=== PATIENT | female | born 1955 | race Caucasian/White ===

== ENCOUNTER → 2021-11-04 12:54 | Outpatient (POV) | payer MEDICARE, OTHER, SELFPAY ==
[2021-11-04 12:55] VITALS: BP 126/83; PULSE 114; RESP 20; TEMP 36.4; O2SAT 97; BMI 27.9
--- NOTE | 2021-11-04 16:16 | EXP.PAIN.OV ---
HPI Data of Consult Patient: new to practice Consult date: 11/04/21 Requesting Physician: Elba Jin APRN Consult Narrative Reason for consult: Upper and lower back pain History of present illness: Ms. Savage is a 65 year old female who presents today as a new patient. She is a self-referral. Her daughter is a patient of ours. Patient rates her pain today a 10 out of 10 and states her pain is all in her upper and lower back. She denies any new trauma or injury to the site. She states she has had this pain for years however in the last 2 weeks it has seemed to worsen. She states she has not been able to sleep at all. Patient states she is unable to lay/sit/stand for any extended period. Patient has not had any updated imaging. Patient states that she has tried physical therapy several years ago but it did not do anything. She is also seen a chiropractor for 2 years on again off again with some improvement of her symptoms about 3 years ago. Patient has used [id number] Tylenol and Aleve with minimal improvement of her symptoms. She states she does use a lidocaine roll on topical that helps give some relief however it does not provide long-term relief. Patient states ice and heat do help however it is not long-lasting. Patient is requesting pain medication at today's visit. She is currently managed with gabapentin 800 mg twice a day by Dr. [place]. Patient has tried and failed conservative therapy such as oral medications, heat and ice, topical medications, physical therapy, home exercise and stretching for longer than 6 weeks. Her Juan Antonio is [id number]. It has been reviewed and appropriate. Patient states she was recently diagnosed with chronic kidney disease stage II. Patient is also a diabetic that is poorly controlled. Her last A1c in October was 11. Patient is managed for her diabetes with oral medications as well as insulin however she stated her glucose on average runs around 275. CC: Elba Jin APRN PFSH PFS Medical History (Updated 11/04/21 @ 16:24 by Elba Jin APRN) Anxiety and depression Diabetes mellitus, type 2 History of gastroesophageal reflux (GERD) Hyperlipidemia Hypertension Hypothyroid Meniscal injury Surgical History (Updated 11/04/21 @ 14:32 by Mariella Means RN) History of cholecystectomy History of hysterectomy Social History (Updated 11/04/21 @ 14:34 by Mariella Means RN) Smoking Status: Never smoker alcohol intake: never current occupational status: other Review of Systems Review of Systems Review of systems:: pertinent systems reviewed and negative unless documented below Review of systems (narrative): Review of Systems: General: No recent weight changes, no fever, no sleep disturbances Respiratory: No cough, no shortness of air, no recurring pulmonary infections Cardiovascular/peripheral vascular: No chest pain, no palpitations, no edema, no shortness of breath Gastrointestinal: No new onset incontinence, normal bowel movements reported Genitourinary: No new onset incontinence Musculoskeletal: Neck pain, upper back pain, low back pain Psychiatric: [Normal mood/affect] Neurological: [Denies weakness in extremities], [denies balance issues] Meds Home Medications and Allergies Home Medications Medication Instructions Recorded Confirmed Type amitriptyline 25 mg tablet 25 mg PO HS . 11/04/21 11/04/21 History aspirin 81 mg chewable tablet 81 mg PO DAILY . 11/04/21 11/04/21 History atorvastatin 40 mg tablet 40 mg PO DAILY hld 11/04/21 11/04/21 History benazepril 20 mg tablet 20 mg PO DAILY . 11/04/21 11/04/21 History benzonatate 200 mg capsule 200 mg PO TID PRN Cough 11/04/21 11/04/21 History dapagliflozin 10 mg tablet 10 mg PO DAILY . 11/04/21 11/04/21 History duloxetine 60 mg capsule,delayed 60 mg PO BID Depression 11/04/21 11/04/21 History release fenofibrate nanocrystallized 145 145 mg PO DAILY . 11/04/21 11/04/21 History mg tablet gabapentin 800 mg tablet 8
== END ==
PROVIDERS: Visit Provider Nurse Practitioner Family
DX: M54.50 Low back pain, unspecified (principal); M54.2 Cervicalgia
CPT/HCPCS: 99202; G0463

== ENCOUNTER → 2021-11-10 13:25 | Outpatient (CLI) | payer MEDICARE, OTHER, SELFPAY ==
--- NOTE | 2021-11-10 13:31 | MR_ITS ---
FINAL REPORT CLINICAL HISTORY: LOWER BACK PAIN MID BACK DOWN TO HIPS BILATERAL LEGS RIGHT LEG IS WORSE FINDINGS: MRI LUMBAR SPINE W/O CONTRAST Multiplanar MR imaging of the lumbar spine was performed without contrast. There is motion on some of the images which decreases sensitivity. On the sagittal T2-weighted images, disc degeneration is seen at multiple levels. The vertebral alignment is normal. There is no evidence of fracture. The conus has an unremarkable appearance. L1-2: No significant central canal stenosis or neural foraminal narrowing. L2-3: There is an annular disc bulge with facet arthropathy. L3-4: There is an annular disc bulge with facet arthropathy and mild bilateral neural foraminal narrowing. L4-5: There is an annular disc bulge with facet arthropathy and mild bilateral neural foraminal narrowing. L5-S1: There is an annular disc bulge with facet arthropathy and mild bilateral neural foraminal narrowing. IMPRESSION: Multilevel disc degeneration and spondylosis with areas of mild bilateral neural foraminal narrowing. Reviewed, Interpreted and Dictated by Quinn Fang III, MD Transcribed by Patricia Miller Authenticated and . [facility]
--- NOTE | 2021-11-10 13:31 | MR_ITS ---
FINAL REPORT CLINICAL HISTORY: NECK PAIN MID SHOULDER BLADES AND GOES UP NECK X FEW WEEKS FINDINGS: Multiplanar MR imaging of the cervical spine was performed without contrast. On the sagittal T2-weighted images, disc degeneration is seen throughout. There is no evidence of fracture. The vertebral alignment is normal. The cervical spinal cord has an unremarkable appearance without evidence of mass, edema or syrinx. The cervicomedullary junction is normal. C2-3: There is no significant canal stenosis or neural foraminal narrowing. C3-4: An annular disc bulge is present with bilateral l uncovertebral osteophytes. There is moderate right and severe left neural foraminal narrowing. C4-5: A disc osteophyte complex is present. A right paracentral disc protrusion versus extrusion causes cord contouring. There is moderate central canal stenosis with an AP diameter of the thecal sac of 6 mm. There is mild bilateral neural foraminal narrowing. C5-6: A disc osteophyte complex is present. There is severe right and moderate left neural foraminal narrowing. There is mild central canal stenosis with an AP diameter of the thecal sac of 8 mm. C6-7: A disc osteophyte complex is present. There is mild right and severe left neural foraminal narrowing. C7-T1: A disc osteophyte complex is present. IMPRESSION: Multilevel disc degeneration and spondylosis with areas of neural foraminal narrowing which is worse on the right at C5-6 and on the left at C6-7. Right paracentral disc protrusion versus extrusion causes cord contouring at C4-5. Central canal stenosis at C4-5 and C5-6. Reviewed, Interpreted and Dictated by Quinn Fang III, MD Transcribed by Patricia Miller Authenticated and [facility]
== END ==
PROVIDERS: PCP Family Medicine; Visit Provider Nurse Practitioner Family
DX: M54.2 Cervicalgia (principal); M54.50 Low back pain, unspecified
CPT/HCPCS: 72141; 72148; 76376

== ENCOUNTER → 2021-11-17 14:17 | Outpatient (POV) | payer MEDICARE, OTHER, SELFPAY ==
[2021-11-17 14:31] VITALS: BP 167/98; PULSE 100; RESP 20; BMI 16.1
--- NOTE | 2021-11-17 16:01 | EXP.PAIN.SOA ---
[facility] Pain Management SOAP Note Subjective:: Patient is a pleasant 66-year-old female who presents today for follow-up. We are currently treating the patient for degenerative disc disease of cervical and lumbar spine multilevel with cervical and lumbar radiculopathy symptoms. Today the patient rates her pain a 10 out of 10. She states it is primarily in her neck that radiates down her back into her lumbar spine. Patient denies any new trauma or injury to the site. She states this has been an ongoing issue for years however it has been worse in the last month and a half. Patient continues to state that she is not able to sleep well at night due to the pain. She is unable to lay/sit/stand for extended period of time. Patient has seen physical therapy in the past and states she did not get any improvement of her symptoms. She is also seen a chiropractor about 3 years ago for 2 years on again off again with some improvement of her symptoms. Patient does use a topical lidocaine however it does not provide long-term relief. She is also tried ice and heat with minimal improvement. She is managed currently with gabapentin 800 mg twice a day by Dr. [place]. Patient denies any side effects from this medication. She states this medication does adequately help manage her pain. Patient states that the tizanidine we started her on has given some improvement of her symptoms. She is requesting a refill at today's visit. Patient has tried and failed conservative therapy such as oral medications, heat and ice, topical medications, physical therapy, home exercise and stretching for longer than 6 weeks. Her Juan Antonio is [id number]. It is been reviewed and appropriate. Review of Systems: General: No recent weight changes, no fever, no sleep disturbances Respiratory: No cough, no shortness of air, no recurring pulmonary infections Cardiovascular/peripheral vascular: No chest pain, no palpitations, no edema, no shortness of breath Gastrointestinal: No new onset incontinence, normal bowel movements reported Genitourinary: No new onset incontinence Musculoskeletal: Neck pain, back pain Psychiatric: [Normal mood/affect] Neurological: [Denies weakness in extremities], [denies balance issues] Objective:: Physical Exam: General: Alert and oriented x3, no acute distress, pleasant and cooperative Lungs: Respirations even and unlabored, symmetrical chest expansion Eyes: PERRL Musculoskeletal: Flexion and extension of cervical, lumbar [spine] somewhat guarded secondary to pain, [antalgic gait noted] Neurological: Speech clear, no gross sensory deficit FINAL REPORT CLINICAL HISTORY: LOWER BACK PAIN? MID BACK DOWN TO HIPS ? BILATERAL LEGS ? RIGHT LEG IS WORSE FINDINGS: MRI LUMBAR SPINE W/O CONTRAST? Multiplanar MR imaging of the lumbar spine was performed without contrast.? There is motion on some of the images which decreases sensitivity.? On the sagittal T2-weighted images, disc degeneration is seen at multiple levels.? The vertebral alignment is normal.? There is no evidence of fracture.? The conus has an unremarkable appearance. L1-2:? No significant central canal stenosis or neural foraminal narrowing.? L2-3:? There is an annular disc bulge with facet arthropathy.? L3-4:? There is an annular disc bulge with facet arthropathy and mild bilateral neural foraminal narrowing. L4-5:? There is an annular disc bulge with facet arthropathy and mild bilateral neural foraminal narrowing.? L5-S1: There is an annular disc bulge with facet arthropathy and mild bilateral neural foraminal narrowing. IMPRESSION: Multilevel disc degeneration and spondylosis with areas of mild bilateral neural foraminal narrowing. Reviewed, Interpreted and Dictated by Quinn Fang III, MD Transcribed by Patricia Miller Authenticated and [facility] CLINICAL HISTORY: NECK PAIN? MID SHOULDER BLADES AND GOES UP NECK
== END | disposition home or self-care (01) ==
PROVIDERS: Visit Provider Nurse Practitioner Family
DX: M51.16 Intervertebral disc disorders with radiculopathy, lumbar region (principal); M50.123 Cervical disc disorder at C6-C7 level with radiculopathy
CPT/HCPCS: 99212; G0463

== ENCOUNTER 2021-11-24 11:18 | Day surgery (SDC) | payer MEDICARE, OTHER, SELFPAY ==
[2021-11-24 11:43] VITALS: BP 187/97; PULSE 88; RESP 20; O2SAT 98; BMI 27.9
[2021-11-24 11:59] VITALS: BP 176/93; PULSE 89; RESP 18; O2SAT 98
[2021-11-24 12:00] VITALS: BP 176/93; PULSE 89; RESP 19; O2SAT 98
--- NOTE | 2021-11-24 12:10 | EXP.PAIN.PRO ---
Procedure Date: 11/24/21 Time: 12:10 Anesthesiologist:: Bernardo Shearer CRNA Complications:: None Pre-procedure Diagnosis:: Degenerative disc disease cervical spine multilevels. Cervical radiculopathy symptoms. Post-procedure Diagnosis:: Same Indications for Procedure:: Patient is a pleasant 66-year-old female who comes our clinic today for cervical epidural steroid injection C7-T1 level. Patient complains of cervical neck pain as well as bilateral arm radicular symptoms at times. She rates her pain 6/10. Procedure Details:: Procedure:Cervical epidural steroid injection Informed consent was obtained and the risks and benefits of the procedure were explained to the patient. The patient was taken to the procedure room and noninvasive monitors placed, including noninvasive blood pressure cuff and pulse oximeter. The neck was prepped using Betadine as a cleansing solution. The C7-T1 interspace was palpated. The skin and subcutaneous tissues were anesthetized using lidocaine 1.5% and a 25-gauge needle. After this an 18-gauge Touhy epidural needle was placed into the C7-T1 interspace and advanced using loss of resistance to air until the epidural space was encountered. After confirmation of needle placement in the epidural space, a solution containing lidocaine 1.5%, 4 mL and Depo-Medrol 80 mg was incrementally injected into the cervical epidural space.~ The patient tolerated the procedure well with no complications. The patient was observed in the Pain Clinic and then discharged home neurologically intact. Plan and Disposition:: Patient was discharged without incident.
[2021-11-24 12:17] VITALS: BP 160/82; PULSE 88; RESP 20; O2SAT 99
== END 2021-11-24 12:19 | disposition home or self-care (01) ==
PROVIDERS: PCP Family Medicine; Visit Provider Nurse Anesthetist, Certified Registered
DX: M50.13 Cervical disc disorder with radiculopathy, cervicothoracic region (principal); M51.16 Intervertebral disc disorders with radiculopathy, lumbar region
CPT/HCPCS: 62321; J1040; Q9966

== ENCOUNTER → 2021-12-16 09:36 | Outpatient (POV) | payer MEDICARE, OTHER, SELFPAY ==
--- NOTE | 2021-12-16 10:03 | EXP.PAIN.SOA ---
[facility] Pain Management SOAP Note Subjective:: Patient is a pleasant 66-year-old female who presents today for follow-up of cervical epidural C7-T1 on 11/24/2021. We are currently treating the patient for degenerative disc disease cervical spine multilevels with cervical radiculopathy symptoms, degenerative disc disease lumbar with lumbar radiculopathy symptoms. Today the patient states that she has had significant improvement in the pain that she was experiencing along her neck and upper back following this injection. She writes at least 75% relief and feels like she is still getting additional improvement from this injection. Today she does rate her pain an 8 out of 10. She states her pain is primarily in her low back that radiates into her lower extremities. She describes this as a achy, sharp pain that is worse with increased activity. Patient denies any new trauma or injury. She denies any change in location or type of pain that she experiences. Patient has tried wbbj-kcu-gfhdfxb Tylenol and ibuprofen with minimal improvement of her symptoms. Patient states she often has trouble sleeping at night due to the pain. Previously we had prescribed her tizanidine 4 mg at night. Patient states that this medication did work well and is requesting a refill at today's visit. Patient has seen physical therapy in the past however she stated that she did not get significant improvement of her symptoms. Patient has used [id number]-[id number]-fgdxwbz topical medications with some improvement however she is now using her compounding cream that she states gives significant relief. she is currently managed with gabapentin 800 mg twice a day by Dr. [place]. Patient denies any side effects from this medication. She states this medication does adequately help manage her pain. Her Juan Antonio is [id number]. It is been reviewed and appropriate. Review of Systems: General: No recent weight changes, no fever, no sleep disturbances Respiratory: No cough, no shortness of air, no recurring pulmonary infections Cardiovascular/peripheral vascular: No chest pain, no palpitations, no edema, no shortness of breath Gastrointestinal: No new onset incontinence, normal bowel movements reported Genitourinary: No new onset incontinence Musculoskeletal: Low back pain, bilateral leg pain Psychiatric: [Normal mood/affect] Neurological: [Denies weakness in extremities], [denies balance issues] Objective:: Physical Exam: General: Alert and oriented x3, no acute distress, pleasant and cooperative Lungs: Respirations even and unlabored, symmetrical chest expansion Eyes: PERRL Musculoskeletal: Flexion and extension of lumbar [spine] somewhat guarded secondary to pain, [antalgic gait noted] Neurological: Speech clear, no gross sensory deficit CLINICAL HISTORY: LOWER BACK PAIN? MID BACK DOWN TO HIPS ? BILATERAL LEGS ? RIGHT LEG IS WORSE FINDINGS: MRI LUMBAR SPINE W/O CONTRAST? Multiplanar MR imaging of the lumbar spine was performed without contrast.? There is motion on some of the images which decreases sensitivity.? On the sagittal T2-weighted images, disc degeneration is seen at multiple levels.? The vertebral alignment is normal.? There is no evidence of fracture.? The conus has an unremarkable appearance. L1-2:? No significant central canal stenosis or neural foraminal narrowing.? L2-3:? There is an annular disc bulge with facet arthropathy.? L3-4:? There is an annular disc bulge with facet arthropathy and mild bilateral neural foraminal narrowing. L4-5:? There is an annular disc bulge with facet arthropathy and mild bilateral neural foraminal narrowing.? L5-S1: There is an annular disc bulge with facet arthropathy and mild bilateral neural foraminal narrowing. IMPRESSION: Multilevel disc degeneration and spondylosis with areas of mild bilateral neural foraminal narrowing. Reviewed, Interpreted and Dictated by Quinn Fang III, MD Transcribed by Patricia Miller Authenticated and Electronically [facility]
[2021-12-16 10:05] VITALS: BP 119/74; PULSE 82; RESP 18; TEMP 36.2; O2SAT 98; BMI 27.9
== END ==
PROVIDERS: PCP Family Medicine; Visit Provider Nurse Practitioner Family
DX: M51.16 Intervertebral disc disorders with radiculopathy, lumbar region (principal); M50.13 Cervical disc disorder with radiculopathy, cervicothoracic region
CPT/HCPCS: 99212; G0463

== ENCOUNTER 2021-12-29 07:42 | Day surgery (SDC) | payer MEDICARE, OTHER, SELFPAY ==
[2021-12-29 07:56] VITALS: BP 165/82; PULSE 82; RESP 20; TEMP 36.5; O2SAT 99; BMI 27.9
[2021-12-29 08:14] LABS: POC Glucose,Bedside 174 (70-110)
[2021-12-29 08:24] VITALS: BP 149/80; PULSE 80; RESP 18; O2SAT 98
[2021-12-29 08:33] VITALS: BP 151/80; PULSE 74; RESP 18; O2SAT 98
[2021-12-29 08:40] VITALS: BP 165/82; PULSE 82; RESP 18; TEMP 36.5; O2SAT 99
--- NOTE | 2021-12-29 09:27 | EXP.PAIN.PRO ---
Procedure Date: 12/29/21 Time: 09:15 Anesthesiologist:: Bernardo Shearer CRNA Complications:: None Pre-procedure Diagnosis:: Degenerative disc disease lumbar spine multilevels. Lumbar radiculopathy Post-procedure Diagnosis:: Same Indications for Procedure:: Patient is a pleasant 66-year-old female that comes today for lumbar epidural steroid injection at the L4-5 level. Patient complains of low back pain as well as bilateral hip and leg radicular symptoms. She rates her pain 7/10. Procedure Details:: Procedure: Lumbar epidural steroid injection under fluoroscopy Informed consent was obtained and the risks and benefits of the procedure were explained to the patient. The patient was taken to the procedure room and noninvasive monitors placed, including noninvasive blood pressure cuff and pulse oximeter. The back was viewed using C-arm Fluoroscopy and prepped using Chloraprep as a cleansing solution and the L4-L5 interspace was palpated. Skin and subcutaneous tissues were anesthetized using lidocaine 1.5% and a 25-gauge needle. After this, an 18-gauge Touhy epidural needle was placed into the L4-L5 interspace and advanced using fluoroscopic guidance and loss of resistance to air until the epidural space was encountered. After confirmation of needle placement in the epidural space, with dye, a solution containing normal saline, 3 mL and Depo-Medrol 80 mg were incrementally injected into the lumbar epidural space. The patient tolerated the procedure well with no complications. The patient was observed in the Pain Clinic and then discharged home neurologically intact. Plan and Disposition:: Patient was discharged without incident.
== END 2021-12-29 08:40 | disposition home or self-care (01) ==
LOC: SC.PAINP 07:42
PROVIDERS: PCP Family Medicine; Visit Provider Nurse Anesthetist, Certified Registered
DX: M51.16 Intervertebral disc disorders with radiculopathy, lumbar region (principal); E11.9 Type 2 diabetes mellitus without complications
CPT/HCPCS: 62323; 82962; J1040

== ENCOUNTER → 2022-04-05 13:59 | Outpatient (POV) | payer MEDICARE, OTHER, SELFPAY ==
[2022-04-05 14:02] VITALS: BP 109/72; PULSE 101; RESP 18; O2SAT 97; BMI 27.9
--- NOTE | 2022-04-05 14:27 | EXP.PAIN.SOA ---
[facility] Pain Management SOAP Note Subjective:: Patient is a pleasant 66-year-old female who presents today for follow-up. We are currently treating the patient for degenerative disc disease of cervical and lumbar spine multilevels with cervical and lumbar radiculopathy symptoms. Today she rates her pain a 4 out of 10. Patient states she is experiencing new pain in her left arm that radiates to her neck. Patient states this is a achy, throbbing sensation that is worse with increased activity. Patient does states she has decreased range of motion and frequently cannot lift her arm above her head even to change her shirt due to the pain. Patient denies any new trauma or injury. Patient states this has been going on for almost 2 weeks. Patient states that she did initially do awkward positioning trying to mess with a car window and felt like this could have initially started it. Patient denies any imaging of her left shoulder. Patient is currently managed with gabapentin 800 mg twice a day from an outside provider and compounding cream from our office. Patient denies any side effects from these medications. She states these medications do help manage some of her pain symptoms. Her Juan Antonio is [id number]. Its been reviewed and appropriate. Review of Systems: General: No recent weight changes, no fever, no sleep disturbances Respiratory: No cough, no shortness of air, no recurring pulmonary infections Cardiovascular/peripheral vascular: No chest pain, no palpitations, no edema, no shortness of breath Gastrointestinal: No new onset incontinence, normal bowel movements reported Genitourinary: No new onset incontinence Musculoskeletal: Left shoulder pain Psychiatric: [Normal mood/affect] Neurological: [Denies weakness in extremities], [denies balance issues] Objective:: Physical Exam: General: Alert and oriented x3, no acute distress, pleasant and cooperative Lungs: Respirations even and unlabored, symmetrical chest expansion Eyes: PERRL Musculoskeletal: Flexion and extension of cervical [spine], left shoulder somewhat guarded secondary to pain, [antalgic gait noted] Neurological: Speech clear, no gross sensory deficit ORT score updated with low risk Assessment:: Degenerative disc disease of cervical and lumbar spine multilevels with cervical and lumbar radiculopathy symptoms, left shoulder pain Plan:: Patient is experiencing significant pain in her left arm and left shoulder. Patient had limited range of motion of her cervical spine and left shoulder during today's visit. I will order x-ray imaging of her left shoulder. I have also discussed with the patient that she may benefit from a left shoulder intra-articular injection. Risk and benefits were discussed with the patient. She would like to proceed forward with this plan of care. I have also discussed with the patient that if she does not get significant improvement following this injection that we will order additional imaging such as a MRI or CT of her shoulder. We will schedule her for a diagnostic left shoulder intra-articular injection. Patient has been instructed to contact the clinic with any concerns before the next appointment. Dr. Keys has reviewed this note and agrees with this plan of care. This note was dictated using voice recognition software and make contain errors or omissions. [facility] Disclaimer: The information contained in this section may have been updated after the patient was seen, as this information can be updated by other users. Medical History Anxiety and depression Diabetes mellitus, type 2 History of gastroesophageal reflux (GERD) Hyperlipidemia Hypertension Hypothyroid Meniscal injury Surgical History History of cholecystectomy History of hysterectomy Family History Other No significant family history Soc
== END ==
PROVIDERS: Visit Provider Nurse Practitioner Family
DX: M51.16 Intervertebral disc disorders with radiculopathy, lumbar region (principal); M50.10 Cervical disc disorder with radiculopathy, unspecified cervical region; M25.512 Pain in left shoulder
CPT/HCPCS: 99212; G0463

== ENCOUNTER → 2022-04-05 14:32 | Outpatient (CLI) | payer MEDICARE, OTHER, SELFPAY ==
--- NOTE | 2022-04-05 14:42 | XR_ITS ---
FINAL REPORT CLINICAL HISTORY: LEFT SHOULDER PAIN, no known injury. FINDINGS: Three views of the left shoulder were obtained. There is no prior exam for comparison. There is no fracture or dislocation. There is a calcification along the inferior glenoid which could be an osteophyte. There is calcification in the region of the rotator cuff which could represent calcific tendinitis. The joint space is preserved. IMPRESSION: Chronic changes with no acute osseous abnormality. Reviewed, Interpreted and Dictated by Romana Dwyer MD Transcribed by Anna Null Authenticated and [facility]
== END ==
PROVIDERS: PCP Family Medicine; Visit Provider Anesthesiology
DX: M25.512 Pain in left shoulder (principal)
CPT/HCPCS: 73030; 99212; G0463

== ENCOUNTER 2022-04-20 10:31 | Day surgery (SDC) | payer MEDICARE, OTHER, SELFPAY ==
[2022-04-20 10:51] VITALS: BP 127/72; PULSE 89; RESP 18; TEMP 36.7; O2SAT 98; BMI 27.9
[2022-04-20 10:55] VITALS: BP 147/84; PULSE 93; RESP 18; O2SAT 98
[2022-04-20 10:56] VITALS: BP 147/84; PULSE 93; RESP 18; O2SAT 98
--- NOTE | 2022-04-20 10:59 | P.PCN_ITS ---
Procedure Date: 04/20/22 Time: 10:30 Anesthesiologist:: Bernardo Shearer CRNA Complications:: None Pre-procedure Diagnosis:: Osteoarthritis left shoulder. Tendinitis. Post-procedure Diagnosis:: Same. Indications for Procedure:: Patient is a very pleasant 66-year-old female that comes to our clinic today for intra-articular injection left shoulder. Patient describes her left shoulder pain as constant, dull, sharp and stabbing at times. She has difficulty with abduction and abduction. She rates her pain 7/10 in Procedure Details:: Procedure Details: Left shoulder intra-articular injection Informed consent was obtained risk and benefits of the procedure were explained to the patient. Patient was taken to the procedure room. The left shoulder was prepped using ChloraPrep. A 25-gauge needle was used first anteriorly, laterally, and then posteriorly to inject 10 mL bupivacaine 0.25% and Depo- Medrol 40 mg. Patient tolerated procedure well with no complications. Plan and Disposition:: Patient was discharged without incident.
[2022-04-20 11:06] VITALS: BP 122/73; PULSE 83; RESP 18; O2SAT 98
== END 2022-04-20 11:06 | disposition home or self-care (01) ==
PROVIDERS: PCP Family Medicine; Visit Provider Nurse Anesthetist, Certified Registered
DX: M19.012 Primary osteoarthritis, left shoulder (principal); M77.9 Enthesopathy, unspecified
CPT/HCPCS: 20610; J1040

== ENCOUNTER → 2022-05-26 14:37 | Outpatient (POV) | payer MEDICARE, OTHER, SELFPAY ==
[2022-05-26 15:11] VITALS: BP 125/73; PULSE 110; RESP 20; BMI 27.9
--- NOTE | 2022-05-26 15:25 | EXP.PAIN.SOA ---
[facility] Pain Management SOAP Note Subjective:: Patient is a pleasant 66-year-old female who presents today for left shoulder intra-articular injection on 04/20/2022. We are currently treating the patient for degenerative disc disease of cervical and lumbar spine multilevels with cervical and lumbar radiculopathy symptoms. Today she states that she only had approximately 40% improvement following this injection and only lasting a couple of days. She does rate her pain today a 4 out of 10. Patient denies any new trauma or injury. She states her pain remains at her bilateral shoulders as well as her low back and her buttocks. She does state that she is having increasing pain around her buttocks area and describes it as a aching, throbbing sensation that is worse with increased activity. Patient does state it is difficult to sit for long periods of time due to the increasing pain. It does interfere with her abilities to perform activities of daily living such as cooking and cleaning. Patient has been prescribed compounding cream in the past and states it does help some. She also is on gabapentin 800 mg twice a day from an outside provider. Patient was given in the past tizanidine 4 mg at bedtime and she states this did provide additional improvement. She is requesting a refill at today's visit. Her Juan Antonio is [phone]. Its been reviewed and appropriate. Review of Systems: General: No recent weight changes, no fever, no sleep disturbances Respiratory: No cough, no shortness of air, no recurring pulmonary infections Cardiovascular/peripheral vascular: No chest pain, no palpitations, no edema, no shortness of breath Gastrointestinal: No new onset incontinence, normal bowel movements reported Genitourinary: No new onset incontinence Musculoskeletal: Low back pain, buttocks pain, bilateral shoulder pain, leg pain Psychiatric: [Normal mood/affect] Neurological: [Denies weakness in extremities], [denies balance issues] Objective:: Physical Exam: General: Alert and oriented x3, no acute distress, pleasant and cooperative Lungs: Respirations even and unlabored, symmetrical chest expansion Eyes: PERRL Musculoskeletal: Flexion and extension of lumbar [spine] somewhat guarded secondary to pain, [antalgic gait noted] point tenderness along sacrum; positive leg raise Neurological: Speech clear, no gross sensory deficit Assessment:: Degenerative disc disease of cervical and lumbar spine with cervical and lumbar radiculopathy symptoms, bilateral shoulder pain, coccydynia, buttocks pain Plan:: Patient is experiencing worsening symptoms in her low back and buttocks with radiating symptoms into her lower extremities. Patient did have limited range of motion of her lumbar spine and point tenderness along her sacrum during today's exam as well as a positive leg raise bilaterally. I have discussed with the patient that she may benefit from a caudal epidural. Risk and benefits were discussed with the patient and she would like to proceed forward with this plan of care. Patient is not on any blood thinners. I will order the patient's a refill of her tizanidine 4 mg at bedtime and provide a 1 month supply of this medication. Patient will be scheduled for a caudal epidural. Patient has been instructed to contact the clinic with any concerns before the next appointment. Dr. Keys has reviewed this note and agrees with this plan of care. This note was dictated using voice recognition software and make contain errors or omissions. [facility] Disclaimer: The information contained in this section may have been updated after the patient was seen, as this information can be updated by other users. Medical History Anxiety and depression Diabetes mellitus, type 2 History of gastroesophageal reflux (GERD) Hyperlipidemia Hypertension Hypothyroid Meniscal injury Surgical History (Reviewed 04/20/22 @ 10:53 by Shannan Galarza
== END | disposition home or self-care (01) ==
PROVIDERS: Visit Provider Nurse Practitioner Family
DX: M51.16 Intervertebral disc disorders with radiculopathy, lumbar region (principal); M50.10 Cervical disc disorder with radiculopathy, unspecified cervical region; M25.511 Pain in right shoulder; M25.512 Pain in left shoulder; M53.3 Sacrococcygeal disorders, not elsewhere classified
CPT/HCPCS: 99212; G0463

== ENCOUNTER → 2022-06-08 10:58 | Day surgery (SDC) | payer MEDICARE, OTHER, SELFPAY ==
[2022-06-08 11:11] VITALS: BP 156/77; PULSE 82; RESP 18; TEMP 36.6; O2SAT 97; BMI 27.9
--- NOTE | 2022-06-08 11:16 | PC.NURSE ---
Procedure cancelled due to pt blood glucose elevated-430.
--- NOTE | 2022-06-15 08:00 | A.OFFVIS_ITS ---
[facility] Pain Management SOAP Note Subjective:: Low back bilateral leg pain Objective:: Degenerative disc disease Assessment:: Patient presents to the clinic today for caudal epidural steroid injection. Her fingerstick blood sugar was elevated. Patient states she drank a Mountain Dew prior to her appointment. Plan:: Procedure will be postponed until next week. Patient encouraged to monitor glucose prior to appointment [facility] Disclaimer: The information contained in this section may have been updated after the patient was seen, as this information can be updated by other users. Medical History Anxiety and depression Diabetes mellitus, type 2 History of gastroesophageal reflux (GERD) Hyperlipidemia Hypertension Hypothyroid Meniscal injury Surgical History History of cholecystectomy History of hysterectomy Family History Other No significant family history Social History Smoking Status: Never smoker alcohol intake: never current occupational status: other Travel in the last 8 weeks: None
== END ==
PROVIDERS: PCP Family Medicine; Visit Provider Nurse Anesthetist, Certified Registered
DX: Z53.09 Procedure and treatment not carried out because of other contraindication (principal); R73.9 Hyperglycemia, unspecified

== ENCOUNTER 2022-06-15 14:16 | Day surgery (SDC) | payer MEDICARE, OTHER, SELFPAY ==
[2022-06-15 14:32] VITALS: BP 142/78; PULSE 91; RESP 18; TEMP 36.4; O2SAT 96; BMI 29.6
[2022-06-15 14:54] VITALS: BP 167/90; PULSE 90; RESP 18; O2SAT 98
[2022-06-15 14:56] VITALS: BP 167/90; PULSE 90; RESP 18; O2SAT 97
--- NOTE | 2022-06-15 15:00 | P.PCN_ITS ---
Procedure Date: 06/15/22 Time: 15:00 Anesthesiologist:: Bernardo Shearer CRNA Complications:: None Pre-procedure Diagnosis:: Degenerative disc disease lumbar spine multilevels. Lumbar radiculopathy. Sacral pain. Bilateral hip pain. Post-procedure Diagnosis:: Same. Indications for Procedure:: Patient is a very pleasant 66-year-old female that comes our clinic today for caudal epidural steroid injection. Patient complains of low back pain. Caudal pain. Sacral pain. Coccydynia pain. Patient reports she suffered a fall several years ago off the back of a pickup truck and fell on her bottom. She has had pain ever since. She rates her pain 8/10. Procedure Details:: Procedure: Caudal epidural steroid injection under fluoroscopy Informed consent was obtained and the risks and benefits of the procedure were explained to the patient. The patient was taken to the procedure room and noninvasive monitors placed, including noninvasive blood pressure cuff and pulse oximeter. The back was viewed using C-arm Fluoroscopy and prepped using Chloraprep as a cleansing solution and the caudal epidural space was identified. Skin and subcutaneous tissues were anesthetized using lidocaine 1.5% and a 25- gauge needle. After this, a 25-gauge 3 and half inch spinal needle was used to access the caudal epidural space. After confirmation of needle placement in the caudal space, with dye, a solution containing normal saline, 3 mL and Depo-Med rol 80 mg were incrementally injected into the lumbar caudal space. The patient tolerated the procedure well with no complications. Plan and Disposition:: Patient was discharged without incident.
[2022-06-15 15:01] VITALS: BP 156/84; PULSE 93; RESP 18; O2SAT 98
== END 2022-06-15 15:01 | disposition home or self-care (01) ==
PROVIDERS: PCP Family Medicine; Visit Provider Nurse Anesthetist, Certified Registered
DX: M51.16 Intervertebral disc disorders with radiculopathy, lumbar region (principal); M25.551 Pain in right hip; M25.552 Pain in left hip
CPT/HCPCS: 62323; J1030; Q9966

== ENCOUNTER → 2022-08-16 15:16 | Outpatient (POV) | payer MEDICARE, OTHER, SELFPAY ==
[2022-08-16 15:17] VITALS: BMI 29.0
--- NOTE | 2022-08-16 15:33 | EXP.PAIN.SOA ---
[facility] Pain Management SOAP Note Subjective:: Patient is a pleasant 66-year-old female who presents today for follow-up.? We are currently treating the patient for degenerative disc disease of cervical and lumbar spine multilevels with cervical and lumbar radiculopathy symptoms.? Today she rates her pain a 7 out of 10.? She denies any new trauma or injury. She denies any change to location or type of pain she experiences. She does state that her pain is in her low back and describes it as an achy, throbbing sensation that is worse with increased activity.? She states this pain is worse with increased activity. It does interfere with her ability to perform activities of daily living such as cooking and cleaning. Patient has had lumbar epidural steroid injection in the past that did provide significant improvement lasting several months. She is interested in repeating this injection during today's visit. Patient is currently managed with gabapentin 800 mg twice a day from an outside provider and compounding cream from our office.? Patient denies any side effects from these medications.? Her Juan Antonio is reviewed and is appropriate Review of Systems: General: No recent weight changes, no fever, no sleep disturbances Respiratory: No cough, no shortness of air, no recurring pulmonary infections Cardiovascular/peripheral vascular: No chest pain, no palpitations,? no edema, no shortness of breath Gastrointestinal: No new onset incontinence, normal bowel movements reported Genitourinary: No new onset incontinence Musculoskeletal: Low back pain Psychiatric: [Normal mood/affect] Neurological: [Denies weakness in extremities], [denies balance issues] Objective:: Physical Exam: General: Alert and oriented x3, no acute distress, pleasant and cooperative Lungs: Respirations even and unlabored, symmetrical chest expansion Eyes: PERRL Musculoskeletal: Flexion and extension of lumbar [spine] somewhat guarded secondary to pain, [antalgic gait noted] Neurological: Speech clear, no gross sensory deficit Assessment:: Degenerative disc disease of cervical and lumbar spine multilevels with cervical and lumbar radiculopathy symptoms Plan:: Patient is experiencing significant pain in her low back with limited range of motion. I have counseled the patient that she may benefit from a lumbar epidural steroid injection. Risk and benefits were discussed with the patient and she would like to proceed forward with this plan of care. Patient is not on any blood thinners. Patient has had previous lumbar epidural steroid injections that provided significant improvement of upwards of 60 to 80% relief. Patient has tried and failed conservative therapy such as oral medications, heat and ice, topicals, physical therapy, at home stretching and exercise for longer than 6 weeks. We will schedule the patient for a LESI L4-L5. Patient has been instructed to contact the clinic with any concerns before the next appointment. Dr. Keys has reviewed this note and agrees with this plan of care. This note was dictated using voice recognition software and make contain errors or omissions. [facility] Disclaimer: The information contained in this section may have been updated after the patient was seen, as this information can be updated by other users. Medical History Anxiety and depression Diabetes mellitus, type 2 History of gastroesophageal reflux (GERD) Hyperlipidemia Hypertension Hypothyroid Meniscal injury Surgical History History of cholecystectomy History of hysterectomy Family History Other No significant family history Social History Smoking Status: Never smoker alcohol intake: never current occupational status: other Travel in the last 8 weeks: None
== END ==
PROVIDERS: Visit Provider Nurse Practitioner Family
DX: M51.16 Intervertebral disc disorders with radiculopathy, lumbar region (principal); M50.10 Cervical disc disorder with radiculopathy, unspecified cervical region
CPT/HCPCS: 99212; G0463